=== PATIENT | male | born 2000 | race Asian ===

== ENCOUNTER → 2018-11-14 21:42 | Emergency (ER) | payer OTHER ==
--- NOTE | 2018-11-14 22:32 | ED ---
Lower Extremity - HPI Summary HPI Summary: 18-year-old male presents with ankle injury today. He states he inverted his ankle and has pain on the lateral aspect ankle. He states he does have a history of previous sprain to this ankle but no fractures. Denies any numbness or tingling. He states he did fall on his right knee but has minimal pain. He has been ambulate without difficulty on the right knee. Has some pain and walks with a limp on the left ankle. Denies any other injury. - History of Current Complaint Chief Complaint: EDExtremityLower Stated Complaint: LEFT ANKLE INJURY PER PT Time Seen by Provider: 11/14/18 22:06 Pain Intensity: 6 - Allergies/Home Medications Allergies/Adverse Reactions: Allergies Allergy/AdvReac Type Severity Reaction Status Date / Time No Known Allergies Allergy Verified 11/14/18 21:46 Home Medications: Home Medications NK [No Home Medications Reported] 11/14/18 [History Confirmed 11/14/18] PMH/Surg Hx/FS Hx/Imm Hx Endocrine/Hematology History: Denies: Hx Anticoagulant Therapy Respiratory History: Denies: Hx Asthma Infectious Disease History: No Infectious Disease History: Denies: Traveled Outside the [place] in Last 30 Days - Family History Known Family History: Negative: Non-Contributory - Social History Alcohol Use: Occasionally Substance Use Type: Reports: None Smoking Status (MU): Never Smoked Tobacco Review of Systems Negative: Fever Negative: Chest Pain Negative: Shortness Of Breath Positive: Myalgia - left ankle pain All Other Systems Reviewed And Are Negative: Yes Physical Exam Triage Information Reviewed: Yes Vital Signs On Initial Exam: Initial Vitals Temp Pulse Resp BP Pulse Ox 98.3 F 86 16 125/66 97 11/14/18 21:44 11/14/18 21:44 11/14/18 21:44 11/14/18 21:44 11/14/18 21:44 Vital Signs Reviewed: Yes Appearance: Positive: Well-Appearing Skin: Positive: Warm, Dry Head/Face: Positive: Normal Head/Face Inspection Eyes: Positive: Normal, Conjunctiva Clear ENT: Positive: Pharynx normal Respiratory/Lung Sounds: Positive: Clear to Auscultation, Breath Sounds Present Cardiovascular: Positive: Normal, RRR Musculoskeletal: Positive: Other - tenderness along lateral left malleolus, good pulses, capillary refill<2secs, able to wiggle toes Neurological: Positive: Normal Psychiatric: Positive: Normal Diagnostics - Vital Signs Vital Signs Temp Pulse Resp BP Pulse Ox 11/14/18 21:44 98.3 F 86 16 125/66 97 - Laboratory Lab Statement: Any lab studies that have been ordered have been reviewed, and results considered in the medical decision making process. - Radiology ankle Radiology Interpretation Completed By: ED Physician Summary of Radiographic Findings: no fracture Lower Extremity Course/Dx - Course Course Of Treatment: 18-year-old male presents with ankle injury today. He states he inverted his ankle and has pain on the lateral aspect ankle. He states he does have a history of previous sprain to this ankle but no fractures. Denies any numbness or tingling. He states he did fall on his right knee but has minimal pain. He has been ambulate without difficulty on the right knee. Has some pain and walks with a limp on the left ankle. Denies any other injury. On exam tenderness over left lateral malleolus. Neurovascular intact. X-ray read by me as normal. Gave gel splint and Guevara. Patient declined crutches. Told to treat with rice. Told if no improvement follow-up with orthopedic. Patient understands agrees to plan. - Diagnoses Differential Diagnosis/HQI/PQRI: Positive: Fracture (Closed), Sprain, Strain Provider Diagnoses: Left ankle injury Discharge - Sign-Out/Discharge Documenting (check all that apply): Patient Departure Patient Received Moderate/Deep Sedation with Procedure: No - Discharge Plan Condition: Good Disposition: HOME Patient Education Materials: Ankle Sprain (ED) Referrals: No Primary Care Phys,NOPCP [Primary Care Provider] - Nasim Morrow MD [Medical Doctor] - Additional Instructions: Stay off ankle as much as possible Ice, elevate, keep in GUEVARA as needed Ibuprofen or tyenlol every 6 hours for pain Follow up with ortho if no improvement Return to ED if develop or any new or worsening symptoms - Billing Disposition and Condition Condition: GOOD Disposition: Home
[2018-11-14 22:44] VITALS: BP 119/68
== END | disposition home or self-care (01) ==
LOC: ED 21:42
DX: S99.912A Unspecified injury of left ankle, initial encounter (principal); M25.572 Pain in left ankle and joints of left foot; X58.XXXA Exposure to other specified factors, initial encounter; Y92.9 Unspecified place or not applicable
CPT/HCPCS: 99282

== ENCOUNTER 2019-10-14 16:01 | Inpatient (IN) | payer OTHER ==
--- NOTE | 2019-10-14 16:11 | ED ---
Psychiatric Complaint - HPI Summary HPI Summary: 19 y/o M brought in by EMS from his residence on 9.41 c/o suicidal ideation. He has thoughts about slitting his wrists. Patient is suicidal because he feels that he cannot help people in the COVID19 outbreak. He is anxious and paranoid about the pandemic. He denies PMHx. FHx mental health. Rare alcohol. No recreational drug use. Non smoker. - History Of Current Complaint Time Seen by Provider: 10/14/19 16:04 Hx Obtained From: Patient Onset/Duration: Lasting Days, Still Present Timing: Constant Character: Anxious Aggravating Factor(s): Nothing Alleviating Factor(s): Nothing Has Suicidal: Reports: Thoughts - Allergies/Home Medications Allergies/Adverse Reactions: Allergies Allergy/AdvReac Type Severity Reaction Status Date / Time No Known Allergies Allergy Verified 11/14/18 21:46 Home Medications: Home Medications NK [No Home Medications Reported] 11/14/18 [History Confirmed 10/14/19] PMH/Surg Hx/FS Hx/Imm Hx Endocrine/Hematology History: Denies: Hx Anticoagulant Therapy Respiratory History: Denies: Hx Asthma - Surgical History Surgical History: None - Family History Known Family History: Positive: Other - mental health - Social History Alcohol Use: Rare Substance Use Type: Reports: None Hx Tobacco Use: No Smoking Status (MU): Never Smoked Tobacco Review of Systems Negative: Fever Positive: Anxious, Other - SI, paranoid All Other Systems Reviewed And Are Negative: Yes Physical Exam - Summary Physical Exam Summary: General: Well appearing, no distress HEENT: PERRL Cardiovascular: Skin is well perfused Pulmonary: No respiratory distress, no tachypnea Abdomen: Non-distended Skin: Warm, pink, dry MSK: No edema Psych: Anxious, (+) SI Neuro: A&Ox3 Triage Information Reviewed: Yes Vital Signs Reviewed: Yes Procedures - Sedation Patient Received Moderate/Deep Sedation with Procedure: No Diagnostics - Laboratory Result Diagrams: 10/14/19 16:28 10/14/19 16:28 Lab Statement: Any lab studies that have been ordered have been reviewed, and results considered in the medical decision making process. Re-Evaluation - Re-Evaluation First Eval Re-Evaluation Time: 16:21 - patient is medically cleared for MHE Course/Dx - Course Course Of Treatment: Patient presenting for mental health clearance. Patient has no active medical conditions warrantly further w/u, vital signs are stable. Patient placed in mental health gown and placed on observation. We'll obtain mental health evaluation. - Differential Dx/Clinical Impression Provider Diagnosis: Unspecified psychosis - Physician Notifications Time Discussed With Above Provider: 17:45 - Psychiatric geotechnicial properties technician discussed case with Dr. Lyon. The patient will be admitted voluntarily. Discharge ED - Sign-Out/Discharge Documenting (check all that apply): Patient Departure - Discharge Plan Condition: Stable Disposition: PSYCHIATRIC FACILITY-[facility] Referrals: No Primary Care Phys,NOPCP [Primary Care Provider] - - Billing Disposition and Condition Condition: STABLE Disposition: Psychiatric Facility [facility] - Attestation Statements Document Initiated by Scribe: Yes Documenting Scribe: Darlene Moss Provider For Whom Willy is Documenting (Include Credential): Lianne Cueto MD Scribe Attestation: Darlene Horton, scribed for Lianne Cueto MD on 10/14/19 at 1757. Scribe Documentation Reviewed: Yes Provider Attestation: The documentation as recorded by the Darlene peacock accurately reflects the service I personally performed and the decisions made by Lianne hansen MD Status of Scribe Document: Viewed
[2019-10-14 16:38] LABS: ABS Lymphocytes 1.5 10^3/ul (1.0-4.8); ABS Monocytes 0.6 10^3/ul (0-0.8); Hematocrit 42 % (42-52); Hemoglobin 14.8 g/dL (14.0-18.0); Lymphocyte % 16.3 %; Mean Corpuscular HGB Conc 35 g/dL (31-36); Mean Corpuscular Hemoglobin 28 pg (27-31); Mean Corpuscular Volume 78 fL (80-94); Mean Platelet Volume 8.4 fL (7.4-10.4); Platelet Count 330 10^3/uL (150-450); Red Blood Count 5.35 10^6 /uL (4.18-5.48); Red Cell Distribution Width 14 % (10-15); White Blood Count 9.2 10^3/uL (3.5-10.8)
[2019-10-14 16:51] LABS: ALT 24 U/L (7-52); AST 17 U/L (13-39); Albumin 5.2 g/dL (3.2-5.2); Albumin/Globulin Ratio 1.7 (1-3); Alkaline Phosphatase 51 U/L (34-104); Anion Gap 11 mmol/L (2-11); BUN/Creatinine Ratio 12.2 (8-20); Blood Urea Nitrogen 11 mg/dL (6-24); CO2 Carbon Dioxide 27 mmol/L (22-32); Chloride 101 mmol/L (101-111); EGFR African American 128.9 (>60); EGFR Non-African American 106.5 (>60); Globulin 3.1 g/dL (2-4); Glucose 142 mg/dL (70-100); Potassium 3.6 mmol/L (3.5-5.0); Sodium 139 mmol/L (135-145); Total Protein 8.3 g/dL (6.4-8.9)
[2019-10-14 17:04] LABS: Acetaminophen < 15 mcg/mL; Alcohol < 10 mg/dL (<10); Salicylate < 2.50 mg/dL (<30)
[2019-10-14 17:18] LABS: TSH (Thyroid Stimulating Horm) 1.44 mcIU/mL (0.34-5.60)
[2019-10-14] MEDS ORDERED: Al Hydrox/Mg Hydrox/Simet LIQ* 30 ML UDC PO PRN (17:43)
[2019-10-14] MEDS ORDERED: Acetaminophen TAB* 325 MG PO PRN (17:43)
[2019-10-14] MEDS: LORazepam TAB(*) 1 MG PO PRN (19:42)
[2019-10-15] MEDS: Vitamin THERAPEUTIC TAB PO SCH (11:38)
--- NOTE | 2019-10-15 17:08 | HP ---
HISTORY AND PHYSICAL: DATE OF ADMISSION: 10/14/19 SUPERVISING PSYCHIATRIST: Dr. Flavio Navarro.* (DICTATED BY HILLARY PHILLIP NP) JUSTIFICATION FOR ADMISSION: The patient presented to the emergency department with suicidal thoughts, paranoid ideation, and anxiety. The patient merits hospitalization for immediate safety and stabilization. CHIEF COMPLAINT: "I'm stressed out, I don't know what is happening, a lot of things are coming at me." HISTORY OF PRESENT ILLNESS: Jarad is a 19-year-old male, resident of [place], student at [employer], currently on leave to pursue research, domiciled , single, who presented to the emergency department via EMS. He had expressed thoughts of suicide to his brother, who called the police to bring him here. In the ED, the patient endorsed suicidal ideation with a plan to cut his wrists with a knife. The patient exhibited disorganized thoughts, paranoid ideation, and ruminations that are affecting his ability to function and care for himself. He received lorazepam with good effect and was able to sleep the night of admission. This morning, the patient is agreeable to meet with engineering writer and social studies teacher. He is cooperative with interview and forthcoming with information. He reports that he is very worried about the current pandemic and worried about people dying. His parents live in [place]. His brother lives in [facility]. He has been more isolative and is living alone. He reports persistent worry about and if he has control over his . He said that he has been having bad thoughts. When I asked about these, he states he bought a knife to cut fruit, but has been keeping it next to the bed and has intrusive images of the knife and blood and his . He reports he has been excessively worried about wires, phone tapping, and not being able to obtain employment. This also leads to being worried about deportation. He states that use of phone or computer leads to worry that the federal government is watching what he is doing. He states he is obsessive about cleaning his apartment. He mentions that the cleaning products advertise 99.99% germicide and he incessantly worries about the 0.01% of germs that are not being treated. He has not been sleeping at night for many nights in a row. He reports he is afraid to go to sleep because he is scared of his . 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 He states that he has had a history of anxiety and worry, but it has very much increased in the last month. He reports a decrease in appetite and states that this is complex. He describes that he gets lost in his thoughts, which then leads to paranoia about food and then leads to worries about how he can be of help to the human race and how he could be a hero. He mentions the teachings of Mccullough and holding himself to a high esteem in that regard. He endorses active suicidal ideation. He denies urges for self-harm. He denies a history of SIB or suicide attempts. When I ask about rituals or compulsive actions, he reports he relieves stress with masturbating. Reports this is typically 1 to 2 times a day. Denies any other compulsions or rituals. PAST PSYCHIATRIC HISTORY: The patient denies a history of outpatient or inpatient psychiatric treatment. He denies a history of psychopharmacology. TRAUMA/ABUSE HISTORY: The patient denies history of abuse or trauma. SUBSTANCE USE HISTORY: The patient reports rare alcohol use. He reports marijuana use especially in his second year of college. He states this was relieving of anxiety, but he stopped using due to increased panic attacks. He reports eating a gummy at a bowl approximately 1 month ago. When asked about this, he expresses concern that the federal government will be aware of his marijuana use. PAST MEDICAL HISTORY: Denies. He denies history of sexual activity or risk for STDs. PAST SURGICAL HISTORY: Denies surgical history. MEDICATIONS: No current medications. ALLERGIES: No known allergies. PRIMARY CARE PROVIDER: None currently. [facility] when he is a student at [employer]. FAMILY PSYCHIATRIC HISTORY: The patient reports vague history of suicidal ideation in immediate family. He denies knowledge of other family mental illness or completed suicide. SOCIAL HISTORY: The patient is one of 2 brothers by parents who are and reside in [place]. His brother is pursuing an [employer] and lives in [facility] [place]. 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 He was actuated into a master's program in computer science. 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 He identifies as heterosexual. He is not currently dating. His restoration is Jainism and he is a vegetarian. He denies legal history. REVIEW OF SYSTEMS: Constitutional: Negative. No fever, chills, or fatigue. ENT: Negative. Cardiovascular: Negative. Denies chest pain or palpitations. Respiratory: Negative. Denies shortness of breath or cough. Genitourinary: Negative. Musculoskeletal: Negative. Neurological: Negative. PHYSICAL EXAMINATION GENERAL: The patient is well appearing, in no apparent distress. VITAL SIGNS: T 97.8, P 87, respiration rate 20, O2 sat 100%, BP 140/85. HEENT: Head and face: Normal head and face inspection. Eyes: Positive EOMI. PERRLA. Conjunctivae clear. NECK: Supple. Full ROM. Trachea midline. RESPIRATORY: Lungs sound clear to auscultation, breath sounds present. CARDIOVASCULAR: Heart RRR. Pulses are symmetrical in both upper and lower extremities. MUSCULOSKELETAL: Normal strength. ROM intact. NEUROLOGICAL: Normal sensory and motor intact. Alert and oriented x3, with normal gait. Cerebellar function intact. SKIN: Warm and dry. Color reflects adequate perfusion. LABORATORY DATA: CBC generally unremarkable. Chemistry generally unremarkable. Glucose was a nonfasting specimen of 142, calcium 11.0. TSH normal at 1.44. Toxicology negative for salicylates, acetaminophen, or alcohol. We are awaiting a urine specimen for urinalysis and urine drug screen. MENTAL STATUS EXAM: The patient is a 19-year-old male, who appears stated age. He is well groomed, casually dressed in his own clothing, a [employer] sweatshirt and jeans. He has a procedural mask on per [facility] pandemic precautions. He is pleasant and cooperative. He appears to be a good historian. He is alert and oriented x3. Eye contact is good. Speech is soft, articulate, and spontaneous. Concentration fair. Memory 3/3. Mood is anxious with restricted affect. No abnormal psychomotor activity noted. Thought process is circumstantial and perseverating. Thought content is positive for suicidal ideation. He denies HI or . He denies auditory or visual hallucinations. He endorses paranoid delusions and excessive worry. Insight and judgment are fair in that the patient is willing to be hospitalized on a voluntary basis. He appears to have at least an average intellect. His fund of knowledge is excellent. DIAGNOSES: 1. Generalized anxiety disorder. 2. Rule out obsessive-compulsive disorder. 3. Rule out major depressive disorder with psychotic features. ASSESSMENT: Jarad is a 19-year-old male, [employer] student, on leave, with no prior psychiatric history, who presented to the emergency department after reaching out to his family specifically his brother with thoughts of suicide. The patient has been increasingly isolative and worried about COVID pandemic. He has not been sleeping. This has led to paranoid ideation. He is agreeable to medications to treat the above symptoms. We will trial fluoxetine 20 mg and temporarily use olanzapine at bedtime due to the psychotic features. PLAN: The patient is admitted to adult behavioral services unit on voluntary status. Code status is full. He was initially placed on safety checks every 15 minutes. This was decreased to 30-minute observation and the patient will be allowed computer use and staff pass per RN discretion. He is already participating in supportive milieu, individual sessions with staff and psychoeducational groups. We will obtain an MMPI for diagnostic clarification. The patient has given informed consent to trial an SSRI and temporary use of antipsychotic. Estimated length of stay is 1 week. Discharge planning will include family involvement and referral to outpatient providers. HILLARY PHILLIP NP [id number]/[facility] #: [id number] [place]
[2019-10-15] MEDS: LORazepam TAB(*) 1 MG PO PRN (20:21)
[2019-10-15] MEDS: OLANzapine TAB* 5 MG PO SCH (20:21)
[2019-10-16] MEDS: FLUoxetine CAP* 20 MG PO SCH ×2 (02:30→10:30)
[2019-10-16] MEDS: Vitamin THERAPEUTIC TAB PO SCH (10:30)
[2019-10-16] MEDS: OLANzapine TAB* 5 MG PO SCH (20:59)
[2019-10-17] MEDS: FLUoxetine CAP* 20 MG PO SCH (10:32)
[2019-10-17] MEDS: Vitamin THERAPEUTIC TAB PO SCH (10:32)
--- NOTE | 2019-10-17 14:34 | PN ---
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 who was brought to our ED for evidence of severe anxiety, excessive worries about Covid 19, insomina, obsessive thoughts about his own and paranoia regarding his phone being tapped by the fed. Today he described his mood as improving. He denied any anxiety, hopelessness and worthlessness. He denied current suicidal or homicidal ideation. No evidence of delusions or paranoia. He is compliant with his medications and he denied constipation/ medication side effects. No evidence of abnormal involuntary movement.He is socializing a little bit more with staff and peers. He slept well for 8 hours yesterday. Objective - General Observations Appearance: Neat Appears Stated Age: Yes Stature: WNL Posture: WNL Eye Contact: Average Behavior/Activity: WNL - Interaction Observations Attitude Towards Examiner: Cooperative Affect: Bright Speech Pattern/Tone: Appropriate Thought Process: Coherent Perception: WNL Thought Content: WNL Hallucination Type: None Delusion Type: None - Cognitive Function Orientation: A&O x 4 Cognition: WNL Estimated Intelligence: Normal Insight: WNL Judgment Within Normal Limits: Yes - Medication Compliance Cooperative with Inpatient Medication Regimen: Yes - Group Participation Participates in Group Activities: Partial - Elaboration on Positive Findings Positive MSE Findings: He denied current suicidal or homicidal ideation. BSU: Problem List - Patient Problems (1) Psychotic affective disorder Current Visit: Yes Status: Acute Code(s): F39 - UNSPECIFIED MOOD [AFFECTIVE ] DISORDER SNOMED Code(s): 977709773 Plan - Plan Treatment Plan: Name: ALICE EWING Birthdate: 2000 [id number] Continue current medication management Medications: Current Medications Acetaminophen (Tylenol Tab*) 650 mg PO Q4H PRN PRN Reason: for pain; or Temp >101 F Al Hydrox/Mg Hydrox/Simethicone (Maalox Plus*) 30 ml PO Q4H PRN PRN Reason: INDIGESTION Fluoxetine HCl (Prozac Cap*) 20 mg PO DAILY [facility] Last Admin: 10/17/19 10:32 Dose: 20 mg Lorazepam (Ativan Tab(*)) 1 mg PO Q4H PRN PRN Reason: ANXIETY Last Admin: 04/03/20 20:21 Dose: 1 mg Multivitamins (Theragran Tab*) 1 tab PO DAILY KIRT Last Admin: 10/17/19 10:32 Dose: 1 tab Olanzapine (Zyprexa Tab*) 5 mg PO BEDTIME [facility] Last Admin: 10/16/19 20:59 Dose: 5 mg
[2019-10-17] MEDS: OLANzapine TAB* 5 MG PO SCH (21:10)
[2019-10-18] MEDS: LORazepam TAB(*) 1 MG PO PRN (02:17)
[2019-10-18] MEDS: FLUoxetine CAP* 20 MG PO SCH (09:57)
[2019-10-18] MEDS: Vitamin THERAPEUTIC TAB PO SCH (09:57)
--- NOTE | 2019-10-18 10:54 | PN ---
Subjective - Subjective Date of Service: 10/18/19 Service Type: 53155 Hosp care 25 min moderate complexity Subjective: Patient is well related and endorses logical and coherent thought processes. He reports improvement in mood and concentration. He denies thoughts of suicide or his . He reports improved sleep since admission. He states he has been reflecting on precipitating events and talking to friends and family. He identifies that isolation (due to pandemic) and lack of sleep led to paranoid thoughts. He states that interacting with others has been helpful. He states his brother, Jose, is unable to leave [facility] due to pandemic lockdown. However, Jose has identified a friend who can picker/puller aJrad at discharge. Jarad states he plans to live with 2 friends and denies anxiety or excessive worry about COVID virus. He endorses relief that paranoina has resovled and acceptance about things that are not in his control. Rail Express Clerk attempted to call Jose at [phone]. There was no answer and VM was not set up. However, SW did speak with Jose about discharge plan and he is agreeable. Objective - General Observations Appearance: Well Groomed Stature: WNL Posture: WNL Eye Contact: Average Behavior/Activity: WNL - Interaction Observations Attitude Towards Examiner: Cooperative Stated Mood: Euthymic Affect: Bright Speech Pattern/Tone: Clear, Appropriate, Normal Volume Thought Process: Coherent, Goal Directed Perception: WNL Thought Content: WNL Hallucination Type: Denies Delusion Type: Denies - Cognitive Function Orientation: A&O x 4 Level of Consciousness: Alert Cognition: WNL Estimated Intelligence: Normal Insight: WNL Judgment Within Normal Limits: Yes - Medication Compliance Cooperative with Inpatient Medication Regimen: Yes - Group Participation Participates in Group Activities: Yes Assessment - Assessment Merits Inpatient Hospitalization: For Immediate Safety, For Stabilization Inpatient DSM-V Dx: F41.1 Clinical Impression: 19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 Patient voiced SI to his brother who lives in [facility]. Jarad has been isolated and increasing anxious r/t to pandemic. He endorses excessive worry, insomnia, obsessional and intrusive thoughts/ images about his and paranoia about feds tapping wires, deportation. Patient has responded well to medications and milieu. He stabilized in this structured setting. Plan - Plan Treatment Plan: Name: JARAD EWING Birthdate: 2000 [id number] Continue acute intensive psychiatric treatment. continue current medications. discharge to include family and referral to outpatient . Tentative DC on 10/19/19. Medications: Current Medications Acetaminophen (Tylenol Tab*) 650 mg PO Q4H PRN PRN Reason: for pain; or Temp >101 F Al Hydrox/Mg Hydrox/Simethicone (Maalox Plus*) 30 ml PO Q4H PRN PRN Reason: INDIGESTION Fluoxetine HCl (Prozac Cap*) 20 mg PO DAILY [facility] Last Admin: 10/18/19 09:57 Dose: 20 mg Lorazepam (Ativan Tab(*)) 1 mg PO Q4H PRN PRN Reason: ANXIETY Last Admin: 10/18/19 02:17 Dose: 1 mg Multivitamins (Theragran Tab*) 1 tab PO DAILY KIRT Last Admin: 10/18/19 09:57 Dose: 1 tab Olanzapine (Zyprexa Tab*) 5 mg PO BEDTIME KIRT Last Admin: 10/17/19 21:10 Dose: 5 mg - Discharge Plan Discharge Plan: Inpatient Hospitalization Outpatient Program: [facility]
[2019-10-18] MEDS: OLANzapine TAB* 5 MG PO SCH (20:36)
[2019-10-19 08:40] VITALS: BP 123/62
[2019-10-19] MEDS: FLUoxetine CAP* 20 MG PO SCH (09:02)
[2019-10-19] MEDS: Vitamin THERAPEUTIC TAB PO SCH (09:02)
--- NOTE | 2019-10-20 15:31 | DS ---
CC: [facility]* DATE OF ADMISSION: 10/14/2019. DATE OF DISCHARGE: 10/19/2019. SUPERVISING PSYCHIATRIST: Dr. Flavio Navarro* (dictated by PAVEL Soriano) . DISCHARGE DIAGNOSES: Generalized anxiety disorder, brief psychotic episode. CONDITION AT THE TIME OF DISCHARGE: Improved. The patient is well-related. He reports resolution of paranoid ideation. He reports improvement in mood and concentration. He endorses logical and coherent thought processes and he denies thoughts of suicide or his . He reports improved sleep since admission. He states he has been reflecting on precipitating events and talking to friends and family. He identifies the isolation due to pandemic precautions and lack of sleep led to paranoid thoughts. He reports interacting with others while hospitalized has been helpful. He states his brother Jose is unable to leave [facility] due to the pandemic lock down; however, Jose identified a friend who can pick Jarad up at discharge. Jarad also plans to live with two friends to avoid isolation and he denies excessive worry about COVID virus. He reports relief that paranoia has resolved and acceptance about things that are not in his control. egg worker has been in contact with the patient's family to discuss discharge planning. The patient states understanding of medication regimen, including remaining on SSRI for the foreseeable future and utilizing Olanzapine as needed for insomnia or paranoid thoughts. The patient is discharged to home. MENTAL STATUS EXAM: The patient is a 19-year-old male who appears stated age. He is well groomed and casually dressed in his own clothing. He has a procedural mask on per [facility] pandemic precautions. He is pleasant and cooperative. He appears to be a good historian. He is alert and oriented. Eye contact is good. Speech is soft, articulate, and spontaneous. Concentration is good. Memory is 3/3. Mood is euthymic with a bright affect. No abnormal psychomotor activity noted. Thought process is logical, goal-directed, and coherent. Thought content is negative for suicidal ideation or passive wish. He denies HI or . He denies auditory or visual hallucinations. He denies paranoid delusions or excessive worry. Insight and judgment are good. He appears to have at least an average intellect and his fund of knowledge is excellent. DISCHARGE INSTRUCTIONS GIVEN TO THE PATIENT: A. Medications: Fluoxetine 20 mg p.o. daily, Olanzapine 5 mg p.o. at bedtime prn insomnia or paranoia. B. Diet: Regular, vegetarian. C. Activity: Ambulation as tolerated. Tobacco cessation is not applicable and there are no pending labs or diagnostic studies. D. Follow-up care: The patient was referred to [facility]. He has plans to return to [place] in February and he can be a client of [facility] at that time. E. Substance use follow-up: Not applicable. HOSPITAL COURSE - PART A: Reason for admission: The patient presented to the emergency department with suicidal thoughts, paranoid ideation, and anxiety. Chief complaint: "I'm stressed out, I don't know what's happening, a lot of things are coming at me." Jarad is a 19-year-old male, resident of [facility], student at [employer], currently on leave to pursue research. He is domiciled and single. He presented to the emergency department via EMS. He had expressed thoughts of suicide to his brother who lives in [facility] and called the police to bring him here. In the ED, the patient endorsed suicidal ideation with a plan to cut his wrists with a knife. The patient exhibited disorganized thoughts, paranoid ideation, and ruminations that are affecting his ability to function and care for himself. He received Lorazepam with good effect and was able to sleep the night of admission. This morning, the patient is agreeable to meet with information writer and foster care social worker. He is cooperative with interview and forthcoming with information. He reports that he is very worried about the current pandemic and worried about people dying. His parents live in [facility]. His brother lives in [facility]. He has been more isolative and is living alone. He reports persistent worry about and if he has control over his . He said that he has been having bad thoughts. When I asked about these , he states he bought a knife to cut fruit, but has been keeping it next to the bed and has intrusive images of the knife and blood and his . He reports he has been excessively worried deportation. He states that the use of phone or computer leads to worry that the federal government is watching what he is doing. He states he is obsessive about cleaning his apartment. He mentions that the cleaning products advertise 99.99% germicide and he incessantly worries about the 0.01% of germs that are not being treated. He has not been sleeping at night for many nights in a row. He reports he is afraid to go to sleep because he is scared of his . 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 He states that he has a history of anxiety and worry, but it has been very much increased in the last month. He reports a decrease in appetite and states that this is complex. He describes that he gets lost in his thoughts which then leads to paranoia about food and then leads to worries about how he can be of help to the human race and how he could be a hero. He mentions the teachings of [employer] and holding himself to a high esteem in that regard. He endorses active suicidal ideation. He denies urges for self-harm. He denies a history of SIB or suicide attempts. When I ask about rituals or compulsive actions, he reports he relieves stress with masturbating. Reports this is typically one to two times a day. He denies any other compulsions or rituals. HOSPITAL COURSE - PART B: Psychiatric treatment rendered: The patient was admitted to the Adult Behavioral Services Unit on voluntary status. Code status was full. He was placed on safety checks every 15 minutes. This was decreased to 30 minute observation and the patient was allowed privileges of staff pass and computer use. He participated fully in supportive milieu, individual sessions with staff and psychoeducational groups. He gave informed consent to start an SSRI Fluoxetine and temporary use of an antipsychotic Olanzapine. The patient was safe on all checks. He was in behavioral control. He slept well. He reported hospital setting and interactions with others was very helpful. He allowed contact with his family to discuss discharge planning with foster care social worker. Everyone was supportive and helpful. Due to current pandemic precautions, his brother is not able to leave [facility] to come support him to transition to outpatient. The patient is okay with this. He states he has friends locally and he is future oriented and goal-directed. The patient requests to be discharged due to obligation to treat in least restrictive setting. Discharge is agreed upon by treatment team. We hope that Jarad does well in the outpatient setting. He is encouraged to call with any questions or concerns after discharge. PAVEL SORIANO [id number]/[facility] #: [id number] [facility]ENTER[facility]ji
== END 2019-10-19 12:15 | disposition home or self-care (01) | DRG 885 ==
LOC: ED 16:01 → BSU 17:43
PROVIDERS: ADMIT Psychiatry & Neurology Psychiatry; ATTEND Psychiatry & Neurology Psychiatry
DX: F23 Brief psychotic disorder (principal); R45.851 Suicidal ideations; F41.1 Generalized anxiety disorder
CPT/HCPCS: 36415; 80053; 80320; 80329; 83036; 84443; 85025; 99222; 99232; 99238; 99284; A9270-GY; G0480